=== PATIENT | female | born 1990 | race Caucasian/White ===

== ENCOUNTER 2018-09-27 15:43 | Emergency (ER) | payer SELFPAY ==
[~2018-09-27] VITALS: Ht 162.6 cm; Wt 108.6 kg
[2018-09-27 15:47] VITALS: BP 99/58; PULSE 95; RESP 16; Ht 162.6 cm; Wt 108.6 kg
== END 2018-09-27 16:19 | disposition left against medical advice (07) ==
LOC: FTE 15:43
DX: Z53.21 Procedure and treatment not carried out due to patient leaving prior to being seen by health care provider (principal)